=== PATIENT | female | born 1930 | race Caucasian/White ===

== ENCOUNTER 2017-02-15 07:53 | Inpatient (IN) | payer MEDICARE, MEDICAID ==
[~2017-02-15] VITALS: Ht 158.8 cm; Wt 63.4 kg
[~2017-02-15 07:53] MED LIST: ALBUPOW26; ESOM40CA39 PO; FLUT250M2 IN; GABA-497 PO; PRE5T PO; TOLT4CAP12 PO; TRAZ50TA2 PO
[2017-02-15 09:31] LABS: BUN/Creatinine Ratio 44.3; Bilirubin, Total 0.4 mg/dL (0.2-1.0); Calcium 8.2 mg/dL (8.5-10.1); Potassium 4.3 mmol/L (3.5-5.1); Total Protein 6.8 g/dL (6.4-8.2)
[2017-02-15 09:43] LABS: Basophils # (auto) 0 uL; CONDITION Y; Eosinophils # (auto) 0 uL; Hemoglobin 10.1 g/dL (12.2-16.2); Lymphocytes # (auto) 0.8 uL; Lymphocytes % (auto) 7.3 % (10.0-50.0); Mean Corpuscular Hemoglobin 28.4 pg (28.0-32.0); Mean Corpuscular Hgb Conc. 32.7 g/dL (32.0-36.0); Mean Corpuscular Volume 87.1 fL (80.0-100.0); Mean Platelet Volume 8.3 fL (7.4-10.4); Monocytes # (auto) 0.4 uL; Monocytes % (auto) 3.7 % (0.0-12.0); Neutrophils # (auto) 10.2 uL; Platelet Count (auto) 266 10^3/uL (140-450); Red Cell Distribution Width 14.3 % (11.6-16.0); White Blood Cell 11.5 10^3/uL (4.4-10.8)
[2017-02-15 09:59] LABS: INR 0.99 (0.9-1.15); Partial Thromboplastin Time 26.8 sec (22.64-33.71); Prothrombin Time 10.8 sec (9.37-12.3)
[2017-02-15] MEDS ORDERED: VANCOMYCIN 1GM/250ML D5W 250 ML IV ONE ×2 (11:00→11:15)
[2017-02-15] MEDS ORDERED: IPRATROPIUM BROM 0.5 MG/2.5ML INH SOL NEB ONE (11:00)
[2017-02-15] MEDS ORDERED: ALBUTEROL SULF 2.5 MG/0.5ML(0.5%) NEB SOLN NEB ONE (11:00)
[2017-02-15] MEDS: DOXYCYCLINE HYC 100MG/250ML 250 ML IV SCH (14:15)
[2017-02-15] MEDS ORDERED: MORPHINE SULF INJ 2 MG/ML SYRINGE 1ML IV PRN (14:30)
[2017-02-15] MEDS ORDERED: TEMAZEPAM 15 MG CAP PO PRN (14:30)
[2017-02-15] MEDS ORDERED: DOCUSATE SOD 100 MG CAP PO PRN (14:30)
[2017-02-15] MEDS ORDERED: HYDROcodone-ACET 5/325MG TAB PO PRN (14:30)
[2017-02-15] MEDS ORDERED: ACETAMINOPHEN 325 MG TAB PO PRN (14:30)
[2017-02-15] MEDS ORDERED: ONDANSETRON HCL 4 MG/2 ML VIAL IV PRN (14:30)
[2017-02-15] MEDS: FAMOTIDINE 20 MG TAB PO SCH ×2 (14:52→21:30)
[2017-02-15 15:41] VITALS: BP 105/63
[2017-02-15] MEDS ORDERED: FLUT100I IN (17:32)
[2017-02-15] MEDS ORDERED: IPRAAER6 IN (17:32)
[2017-02-15] MEDS ORDERED: ALBU18 IN (17:32)
[2017-02-15] MEDS ORDERED: CALC-9 OR (17:32)
[2017-02-15] MEDS ORDERED: UMEC1INH IN (17:32)
[2017-02-15] MEDS ORDERED: MULTLIQ36 OR (17:32)
[2017-02-15] MEDS ORDERED: METH10TA6 PO (17:32)
[2017-02-15 18:00] VITALS: BP 116/60
[2017-02-15] MEDS: BOOST PLUS 8 ounce PO SCH (18:12)
[2017-02-15] MEDS: IPRATROPIUM BROM 0.5 MG/2.5ML INH SOL NEB SCH (18:27)
[2017-02-15] MEDS: ALBUTEROL SULF 2.5 MG/0.5ML(0.5%) NEB SOLN NEB SCH (18:27)
[2017-02-15] MEDS: BUDESONIDE (INHALATION) 0.5 MG/2 ML NEB NEB SCH (18:28)
[2017-02-15 20:00] VITALS: BP 116/60
[2017-02-15] MEDS: TOLTERODINE TARTRATE 1 MG TAB PO SCH (21:31)
[2017-02-15] MEDS: SODIUM CHLOR 0.9% PF (SALINE LOCK) 10ML VIAL IV SCH (21:31)
[2017-02-16] MEDS: IPRATROPIUM BROM 0.5 MG/2.5ML INH SOL NEB SCH ×4 (00:49→18:22)
[2017-02-16] MEDS: ALBUTEROL SULF 2.5 MG/0.5ML(0.5%) NEB SOLN NEB SCH ×4 (00:49→18:22)
[2017-02-16] MEDS: DOXYCYCLINE HYC 100MG/250ML 250 ML IV SCH ×2 (01:56→14:15)
[2017-02-16 05:36] VITALS: BP 113/46
[2017-02-16] MEDS: SODIUM CHLOR 0.9% PF (SALINE LOCK) 10ML VIAL IV SCH ×3 (06:02→21:56)
[2017-02-16] MEDS: BUDESONIDE (INHALATION) 0.5 MG/2 ML NEB NEB SCH ×2 (06:18→18:22)
[2017-02-16 06:31] LABS: Basophils # (auto) 0 uL; Basophils % (auto) 0.3 % (0.0-2.0); CONDITION Y; Eosinophils # (auto) 0 uL; Eosinophils % (auto) 0.5 % (0.0-7.0); Hemoglobin 8.6 g/dL (12.2-16.2); Lymphocytes # (auto) 1.6 uL; Lymphocytes % (auto) 16.1 % (10.0-50.0); Mean Corpuscular Hemoglobin 28.6 pg (28.0-32.0); Mean Corpuscular Hgb Conc. 32.9 g/dL (32.0-36.0); Mean Corpuscular Volume 86.9 fL (80.0-100.0); Mean Platelet Volume 8.1 fL (7.4-10.4); Monocytes # (auto) 0.9 uL; Monocytes % (auto) 8.7 % (0.0-12.0); Neutrophils # (auto) 7.5 uL; Neutrophils % (auto) 74.4 % (37.0-80.0); Platelet Count (auto) 246 10^3/uL (140-450); Red Cell Distribution Width 14.3 % (11.6-16.0); White Blood Cell 10.1 10^3/uL (4.4-10.8)
[2017-02-16 06:50] LABS: Albumin 2.8 g/dL (3.4-5.0); BUN/Creatinine Ratio 33.9; Calcium 7.9 mg/dL (8.5-10.1); Potassium 3.6 mmol/L (3.5-5.1)
[2017-02-16 06:52] LABS: Bilirubin, Total 0.5 mg/dL (0.2-1.0); Total Protein 6.2 g/dL (6.4-8.2)
[2017-02-16 08:00] VITALS: BP 120/58
[2017-02-16 09:00] VITALS: BP 120/58
[2017-02-16] MEDS ORDERED: INCRUSE 62.5 MCG IN SCH (10:00)
[2017-02-16] MEDS: TOLTERODINE TARTRATE 1 MG TAB PO SCH ×2 (10:20→21:56)
[2017-02-16] MEDS: MULTIPLE VITAMIN TAB PO SCH (10:20)
[2017-02-16] MEDS: FAMOTIDINE 20 MG TAB PO SCH ×2 (10:20→21:56)
[2017-02-16] MEDS: CALCIUM W/VIT D (600MG/400IU) TAB PO SCH (10:20)
[2017-02-16] MEDS: BOOST PLUS 8 ounce PO SCH ×3 (10:21→18:00)
[2017-02-16] MEDS: METHIMAZOLE 5 MG TAB PO SCH (10:21)
[2017-02-16 13:00] VITALS: BP 124/65
[2017-02-16 17:00] VITALS: BP 137/66
[2017-02-16] MEDS ORDERED: predniSONE 20 MG TAB PO ONE (17:00)
[2017-02-16 22:33] VITALS: BP 100/59
[2017-02-17] MEDS: ALBUTEROL SULF 2.5 MG/0.5ML(0.5%) NEB SOLN NEB SCH ×4 (00:33→18:00)
[2017-02-17] MEDS: IPRATROPIUM BROM 0.5 MG/2.5ML INH SOL NEB SCH ×4 (00:33→18:00)
[2017-02-17] MEDS: DOXYCYCLINE HYC 100MG/250ML 250 ML IV SCH ×2 (03:06→13:43)
[2017-02-17] MEDS: SODIUM CHLOR 0.9% PF (SALINE LOCK) 10ML VIAL IV SCH ×3 (04:16→21:45)
[2017-02-17 04:56] VITALS: BP 108/61
[2017-02-17] MEDS: BUDESONIDE (INHALATION) 0.5 MG/2 ML NEB NEB SCH ×2 (06:29→07:54)
[2017-02-17] MEDS: BOOST PLUS 8 ounce PO SCH ×3 (08:00→18:00)
[2017-02-17 09:00] VITALS: BP 101/52
[2017-02-17] MEDS: CALCIUM W/VIT D (600MG/400IU) TAB PO SCH (10:32)
[2017-02-17] MEDS: METHIMAZOLE 5 MG TAB PO SCH (10:32)
[2017-02-17] MEDS: TOLTERODINE TARTRATE 1 MG TAB PO SCH ×2 (10:32→21:46)
[2017-02-17] MEDS: FAMOTIDINE 20 MG TAB PO SCH ×2 (10:32→21:45)
[2017-02-17] MEDS: predniSONE 20 MG TAB PO SCH (10:32)
[2017-02-17] MEDS: MULTIPLE VITAMIN TAB PO SCH (10:32)
[2017-02-17 12:41] LABS: Hematocrit 26.8 % (36.0-46.0); Hemoglobin 8.8 g/dL (12.2-16.2)
[2017-02-17 13:00] VITALS: BP 136/73
[2017-02-17] MEDS ORDERED: MORPHINE SULFATE 4 MG/ML SYRG IV PRN (14:03)
[2017-02-17 17:00] VITALS: BP 134/70
[2017-02-17 21:30] VITALS: BP 130/60
[2017-02-18] MEDS: DOXYCYCLINE HYC 100MG/250ML 250 ML IV SCH (02:15)
[2017-02-18 05:00] VITALS: BP 137/68
[2017-02-18] MEDS: SODIUM CHLOR 0.9% PF (SALINE LOCK) 10ML VIAL IV SCH (05:58)
[2017-02-18] MEDS: IPRATROPIUM BROM 0.5 MG/2.5ML INH SOL NEB SCH ×2 (06:30→14:01)
[2017-02-18] MEDS: ALBUTEROL SULF 2.5 MG/0.5ML(0.5%) NEB SOLN NEB SCH ×2 (06:30→14:00)
[2017-02-18] MEDS: BOOST PLUS 8 ounce PO SCH (08:00)
[2017-02-18 09:00] VITALS: BP 113/59
[2017-02-18] MEDS: FAMOTIDINE 20 MG TAB PO SCH (10:21)
[2017-02-18] MEDS: MULTIPLE VITAMIN TAB PO SCH (10:21)
[2017-02-18] MEDS: CALCIUM W/VIT D (600MG/400IU) TAB PO SCH (10:21)
[2017-02-18] MEDS: METHIMAZOLE 5 MG TAB PO SCH (10:21)
[2017-02-18] MEDS: TOLTERODINE TARTRATE 1 MG TAB PO SCH (10:21)
[2017-02-18] MEDS: predniSONE 20 MG TAB PO SCH (10:21)
[2017-02-18 12:56] VITALS: BP 139/73
[2017-02-18 13:00] VITALS: BP 139/73
== END 2017-02-18 14:30 | disposition home or self-care (01) | DRG 191 ==
LOC: EDBD 07:53 → ER 07:58 → OVERFLOW 07:59 → TELE-E-ADS 15:58 → CENTRAL 18:02
PROVIDERS: ADMIT Internal Medicine; ATTEND Internal Medicine Pulmonary Disease
DX: J44.0 Chronic obstructive pulmonary disease with (acute) lower respiratory infection (principal); J45.901 Unspecified asthma with (acute) exacerbation; E44.0 Moderate protein-calorie malnutrition; J96.11 Chronic respiratory failure with hypoxia; K92.1 Melena; J44.1 Chronic obstructive pulmonary disease with (acute) exacerbation; J20.9 Acute bronchitis, unspecified; D63.8 Anemia in other chronic diseases classified elsewhere; K21.9 Gastro-esophageal reflux disease without esophagitis; E78.5 Hyperlipidemia, unspecified; I12.9 Hypertensive chronic kidney disease with stage 1 through stage 4 chronic kidney disease, or unspecified chronic kidney disease; N18.3 Chronic kidney disease, stage 3 (moderate); E83.51 Hypocalcemia; I35.0 Nonrheumatic aortic (valve) stenosis; I70.0 Atherosclerosis of aorta; Z87.891 Personal history of nicotine dependence; Z99.81 Dependence on supplemental oxygen; Z88.0 Allergy status to penicillin; Z88.1 Allergy status to other antibiotic agents; Z68.25 Body mass index [BMI] 25.0-25.9, adult
CPT/HCPCS: 36415; 71010; 80053; 82962; 83605; 84484; 85014; 85018; 85025; 85610; 85730; 87040; 93005; 94640; 94761; 96365; 97116; 97530; J3490

== ENCOUNTER 2017-02-23 16:55 | Inpatient (IN) | payer MEDICARE, MEDICAID ==
[~2017-02-23] VITALS: Ht 160 cm; Wt 80.4 kg
[~2017-02-23 16:55] MED LIST changes: +ALBU18 IN; -ALBUPOW26; +CALC-9 OR; -ESOM40CA39 PO; +FLUT100I IN; -GABA-497 PO; +IPRAAER6 IN; +METH10TA6 PO; +MULTLIQ36 OR; +UMEC1INH IN
[2017-02-23 17:51] LABS: Basophils # (auto) 0 uL; CONDITION Y; Eosinophils # (auto) 0 uL; Hematocrit 30.1 % (36.0-46.0); Hemoglobin 9.8 g/dL (12.2-16.2); Lymphocytes # (auto) 1.1 uL; Lymphocytes % (auto) 5.9 % (10.0-50.0); Mean Corpuscular Hemoglobin 28.6 pg (28.0-32.0); Mean Corpuscular Hgb Conc. 32.7 g/dL (32.0-36.0); Mean Corpuscular Volume 87.7 fL (80.0-100.0); Mean Platelet Volume 7.4 fL (7.4-10.4); Monocytes # (auto) 1.2 uL; Monocytes % (auto) 6.6 % (0.0-12.0); Neutrophils # (auto) 16.6 uL; Neutrophils % (auto) 87.5 % (37.0-80.0); Platelet Count (auto) 469 10^3/uL (140-450); Red Cell Distribution Width 15.8 % (11.6-16.0)
[2017-02-23 18:07] LABS: Albumin 2.9 g/dL (3.4-5.0); BUN/Creatinine Ratio 34.1; Calcium 9.4 mg/dL (8.5-10.1); Magnesium 2.3 mg/dL (1.6-2.6); Potassium 4.1 mmol/L (3.5-5.1)
[2017-02-23 18:23] LABS: Bilirubin, Total 0.5 mg/dL (0.2-1.0); Total Protein 6.5 g/dL (6.4-8.2)
[2017-02-23] MEDS ORDERED: NITROGLYCERIN 0.2MG/HR TOPICAL PATCH TD ONE (18:45)
[2017-02-23] MEDS ORDERED: ASPirin 81 mg TAB PO ONE (18:45)
[2017-02-23 19:12] LABS: INR 1.06 (0.9-1.15); Partial Thromboplastin Time 24.3 sec (22.64-33.71); Prothrombin Time 11.6 sec (9.37-12.3)
[2017-02-23 19:22] LABS: B-Type Natriuretic Peptide 287.53 pg/mL (0-100)
[2017-02-23 19:27] LABS: Temperature: 22.3 C (20.0-25.0)
[2017-02-23] MEDS ORDERED: ATORVASTATIN 20 MG TAB PO ONE (21:15)
[2017-02-23] MEDS ORDERED: METOPROLOL TARTRATE 50 MG TAB PO ONE (21:15)
[2017-02-23] MEDS ORDERED: ENOXAPARIN SOD 80 MG/0.8ML SYRINGE SC ONE (21:15)
[2017-02-23] MEDS ORDERED: ONDANSETRON HCL 4 MG/2 ML VIAL IV ONE (21:15)
[2017-02-23] MEDS ORDERED: MORPHINE SULFATE 4 MG/ML SYRG IV ONE (21:15)
[2017-02-23] MEDS ORDERED: FUROSEMIDE 20 MG/2 ML VIAL IV ONE (22:15)
[2017-02-24] MEDS ORDERED: NITROGLYCERIN 0.4 MG SL TAB SL PRN (01:00)
[2017-02-24] MEDS ORDERED: ACETAMINOPHEN 325 MG TAB PO PRN (01:00)
[2017-02-24] MEDS ORDERED: HYDROcodone-ACET 5/325MG TAB PO PRN (01:00)
[2017-02-24] MEDS: AZITHROMYCIN 500MG/D5W 250ML 250 ML IV SCH (01:33)
[2017-02-24] MEDS ORDERED: MEROPENEM 1GM IVPB 100 ML IV ONE (02:00)
[2017-02-24] MEDS: MORPHINE SULFATE 4 MG/ML SYRG IV PRN ×2 (02:29→15:34)
[2017-02-24] MEDS: ONDANSETRON HCL 4 MG/2 ML VIAL IV PRN ×2 (02:31→15:34)
[2017-02-24] MEDS ORDERED: ALBUMIN 5% 250 ML IV ONE (03:00)
[2017-02-24] MEDS ORDERED: CLOPIDOGREL 300 MG TAB PO ONE (03:00)
[2017-02-24] MEDS ORDERED: ATROPINE SULF 0.5 MG/5ML SYR ONE (03:09)
[2017-02-24] MEDS ORDERED: DOPamine 1600MCG/ML 250 ML IV ONE (03:11)
[2017-02-24] MEDS: DOPamine 1600MCG/ML 250 ML IV SCH ×2 (03:32→22:43)
[2017-02-24] MEDS ORDERED: MEROPENEM 500 MG IV ONE (04:08)
[2017-02-24 04:36] LABS: Urine Bilirubin Negative (Negative); Urine Color Yellow (Yellow); Urine Glucose Normal (Normal); Urine Hyaline Cast FEW /lpf (0 - 2); Urine Ketone Negative (Negative); Urine Nitrite Negative (Negative); Urine RBC <1 /hpf (0 - 4); Urine Squamous Epithelial Cell FEW /hpf (<5); Urine Urobilinogen Normal (Negative)
[2017-02-24 04:40] LABS: Urine Blood 1+ /uL (Negative)
[2017-02-24] MEDS ORDERED: ENOXAPARIN SOD 30 MG/0.3 ML SYRINGE IV ONE (04:45)
[2017-02-24] MEDS: MEROPENEM 500MG IVPB 100 ML IV SCH (05:46)
[2017-02-24] MEDS ORDERED: PATIENTS OWN MEDICATION (meropenem 1 GM) IV SCH (06:00)
[2017-02-24] MEDS ORDERED: ENOXAPARIN SOD 100 MG/1 ML SYRINGE SC SCH (10:00)
[2017-02-24] MEDS ORDERED: DOPAMINE HCL IV ONE (10:07)
[2017-02-24] MEDS: NOREPINEPHRINE BITARTRATE 250 ML IV SCH (11:51)
[2017-02-24] MEDS: PANTOPRAZOLE SODIUM 40 MG/10 ML VIAL IV SCH (11:57)
[2017-02-24] MEDS: PROCHLORPERAZINE EDISYLATE 5 MG/ML 2ML VIAL IV PRN (19:26)
[2017-02-25] VITALS (25 sets, daily range): BP systolic 58–149; BP diastolic 20–104
[2017-02-25] MEDS: MEROPENEM 500MG IVPB 100 ML IV SCH ×2 (02:00→18:46)
[2017-02-25] MEDS: AZITHROMYCIN 500MG/D5W 250ML 250 ML IV SCH (02:14)
[2017-02-25] MEDS: ONDANSETRON HCL 4 MG/2 ML VIAL IV PRN ×2 (02:25→23:38)
[2017-02-25 05:55] LABS: CONDITION Y; DEFINITIVE SEE PRINTOUT; Hematocrit 30.2 % (36.0-46.0); Hemoglobin 10.2 g/dL (12.2-16.2); Mean Corpuscular Hemoglobin 29.6 pg (28.0-32.0); Mean Corpuscular Hgb Conc. 33.8 g/dL (32.0-36.0); Mean Corpuscular Volume 87.6 fL (80.0-100.0); Mean Platelet Volume 7.8 fL (7.4-10.4); Platelet Count (auto) 333 10^3/uL (140-450); Red Cell Distribution Width 15.4 % (11.6-16.0); SUSPECT SEE PRINTOUT
[2017-02-25 06:01] LABS: White Blood Cell 33.3 10^3/uL (4.4-10.8)
[2017-02-25 06:02] LABS: Metamyelocytes % 0; Myelocytes % 0; Promyelocytes % 0; Reactive Lymphocytes 0
[2017-02-25 06:15] LABS: Albumin 2.7 g/dL (3.4-5.0); BUN/Creatinine Ratio 31.9; Calcium 7.6 mg/dL (8.5-10.1); Potassium 4.2 mmol/L (3.5-5.1)
[2017-02-25 06:18] LABS: Bilirubin, Total 0.9 mg/dL (0.2-1.0)
[2017-02-25 06:52] LABS: Hypersegmented Neutrophils Present
[2017-02-25 06:53] LABS: Anisocytosis Slight; Ovalocytes S; Platelet Estimate Adequate
[2017-02-25] MEDS: NOREPINEPHRINE BITARTRATE 250 ML IV SCH (07:15)
[2017-02-25] MEDS ORDERED: fentaNYL CITRATE 100 MCG/2 ML VL ONE (09:22)
[2017-02-25] MEDS ORDERED: MIDAZOLAM HCL 1MG/1ML-2 ML VIAL ONE (09:22)
[2017-02-25] MEDS ORDERED: LIDOCAINE 2%HCL (LOCAL ANESTH.) INJ 20ML MDV ONE ×2 (09:23→10:09)
[2017-02-25] MEDS ORDERED: IOHEXOL 350 MG/ML 100ML IJ ONE (09:23)
[2017-02-25] MEDS: PANTOPRAZOLE SODIUM 40 MG/10 ML VIAL IV SCH (10:00)
[2017-02-25] MEDS: LINEZOLID 600MG/300ML 300 ML IV SCH ×2 (10:00→21:54)
[2017-02-25] MEDS ORDERED: ANGIOMAX 250 MG VIAL IV ONE (10:17)
[2017-02-25] MEDS ORDERED: SODIUM CHL 0.9% 50 ML ONE (10:17)
[2017-02-25] MEDS ORDERED: EPTIFIBATIDE INJ (2MG/ML) 10ML VIAL IV ONE (10:20)
[2017-02-25] MEDS ORDERED: CLOPIDOGREL 300 MG TAB ONE (10:58)
[2017-02-25] MEDS ORDERED: ONDANSETRON HCL 4 MG/2 ML VIAL IV ONE (11:00)
[2017-02-25] MEDS ORDERED: CLOPIDOGREL 300 MG TAB PO ONE (11:15)
[2017-02-25] MEDS ORDERED: DOPamine 1600MCG/ML 250 ML IV ONE (12:00)
[2017-02-25] MEDS: cefTRIAXone 1GM/50ML D5W 50 ML IV SCH (12:00)
[2017-02-25] MEDS ORDERED: MORPHINE SULFATE 4 MG/ML SYRG IV PRN (12:15)
[2017-02-25] MEDS ORDERED: NITROGLYCERIN 0.4 MG SL TAB SL PRN ×2 (12:15)
[2017-02-25] MEDS ORDERED: FUROSEMIDE 20 MG/2 ML VIAL ONE (13:43)
[2017-02-25] MEDS ORDERED: FUROSEMIDE 40 MG/4 ML VIAL IV ONE (14:00)
[2017-02-25 14:34] LABS: Allen Test Yes; Base Excess 0.2 mmol/L (-2.0-2.0); Blood COHb 0.3 % (0.5-1.5); Blood MetHb 0.3 % (0.0-1.5); HCO3 25.2 mmol/L (22-26.0); MODE NASAL CANNULA; O2Hb 97.4 % (94.0-97.0); PCO2 42.2 mmHg (35.0-45.0); PCO2(T) 42.2 mmHg (35.0-45.0); PO2 140.2 mmHg (80.0-100.0); PO2(T) 140.2 mmHg (80.0-100.0); Room 1017-ERT; Sample Type Arterial; pH 7.394 (7.350-7.450)
[2017-02-25] MEDS ORDERED: ALBUMIN 25% 100 ML IV ONE (16:30)
[2017-02-25] MEDS: IPRATROPIUM BROM 0.5 MG/2.5ML INH SOL NEB SCH (18:35)
[2017-02-25] MEDS: DOPamine 1600MCG/ML 250 ML IV SCH ×2 (18:46→23:37)
[2017-02-25] MEDS: methylPREDNISolone SOD SUCC 125 MG/2 ML VL IV SCH (23:37)
[2017-02-26] VITALS (63 sets, daily range): BP systolic 98–150; BP diastolic 42–99
[2017-02-26] MEDS: IPRATROPIUM BROM 0.5 MG/2.5ML INH SOL NEB SCH ×4 (00:08→19:45)
[2017-02-26] MEDS: PROCHLORPERAZINE EDISYLATE 5 MG/ML 2ML VIAL IV PRN (00:39)
[2017-02-26] MEDS: AZITHROMYCIN 500MG/D5W 250ML 250 ML IV SCH (02:05)
[2017-02-26] MEDS: MEROPENEM 500MG IVPB 100 ML IV SCH ×3 (03:52→14:19)
[2017-02-26 04:10] LABS: CONDITION Y; DEFINITIVE SEE PRINTOUT; Hematocrit 22.9 % (36.0-46.0); Hemoglobin 7.6 g/dL (12.2-16.2); Mean Corpuscular Hemoglobin 29.5 pg (28.0-32.0); Mean Corpuscular Volume 89.2 fL (80.0-100.0); Platelet Count (auto) 253 10^3/uL (140-450); Red Cell Distribution Width 15.8 % (11.6-16.0); SUSPECT SEE PRINTOUT; White Blood Cell 21.8 10^3/uL (4.4-10.8)
[2017-02-26 04:20] LABS: Albumin 2.7 g/dL (3.4-5.0); BUN/Creatinine Ratio 28.1; Calcium 7.7 mg/dL (8.5-10.1); Potassium 3.4 mmol/L (3.5-5.1)
[2017-02-26 04:23] LABS: Bilirubin, Total 0.6 mg/dL (0.2-1.0); Total Protein 5.5 g/dL (6.4-8.2)
[2017-02-26 04:27] LABS: Metamyelocytes % 0; Myelocytes % 0; Promyelocytes % 0; Reactive Lymphocytes 0
[2017-02-26 04:48] LABS: Anisocytosis Slight; Hypersegmented Neutrophils Present; Platelet Estimate Adequate
[2017-02-26] MEDS: methylPREDNISolone SOD SUCC 125 MG/2 ML VL IV SCH ×4 (06:06→23:29)
[2017-02-26] MEDS: NOREPINEPHRINE BITARTRATE 250 ML IV SCH (07:15)
[2017-02-26] MEDS: cefTRIAXone 1GM/50ML D5W 50 ML IV SCH (09:00)
[2017-02-26] MEDS: MULTIPLE VITAMIN TAB PO SCH (09:42)
[2017-02-26] MEDS: PANTOPRAZOLE SODIUM 40 MG/10 ML VIAL IV SCH (09:42)
[2017-02-26] MEDS: CALCIUM W/VIT D (600MG/400IU) TAB PO SCH (09:43)
[2017-02-26] MEDS: CLOPIDOGREL BISULFATE 75 MG TAB PO SCH (09:43)
[2017-02-26] MEDS ORDERED: TOLTERODINE TARTRATE 1 MG TAB PO SCH (10:00)
[2017-02-26] MEDS: LINEZOLID 600MG/300ML 300 ML IV SCH ×2 (10:43→23:28)
[2017-02-26] MEDS: ONDANSETRON HCL 4 MG/2 ML VIAL IV PRN (21:46)
[2017-02-26] MEDS: TOLTERODINE TARTRATE 1 MG TAB PO SCH (23:25)
[2017-02-27 00:30] VITALS: BP 127/75
[2017-02-27] MEDS: IPRATROPIUM BROM 0.5 MG/2.5ML INH SOL NEB SCH ×4 (00:30→19:40)
[2017-02-27] MEDS: ONDANSETRON HCL 4 MG/2 ML VIAL IV PRN ×4 (02:02→14:18)
[2017-02-27] MEDS: AZITHROMYCIN 500MG/D5W 250ML 250 ML IV SCH (02:11)
[2017-02-27] MEDS: MEROPENEM 500MG IVPB 100 ML IV SCH ×2 (02:37→14:13)
[2017-02-27] MEDS ORDERED: DOPamine 1600MCG/ML 250 ML IV SCH (03:15)
[2017-02-27] MEDS: methylPREDNISolone SOD SUCC 125 MG/2 ML VL IV SCH ×3 (05:58→18:16)
[2017-02-27 06:22] LABS: Basophils # (auto) 0 uL; CONDITION Y; Eosinophils # (auto) 0 uL; Hematocrit 30.5 % (36.0-46.0); Lymphocytes # (auto) 0.4 uL; Lymphocytes % (auto) 2.9 % (10.0-50.0); Mean Corpuscular Hemoglobin 29.4 pg (28.0-32.0); Mean Corpuscular Hgb Conc. 32.7 g/dL (32.0-36.0); Mean Corpuscular Volume 89.7 fL (80.0-100.0); Mean Platelet Volume 8.7 fL (7.4-10.4); Monocytes # (auto) 0.4 uL; Neutrophils # (auto) 12.7 uL; Neutrophils % (auto) 94.1 % (37.0-80.0); Platelet Count (auto) 227 10^3/uL (140-450); Red Cell Distribution Width 14.8 % (11.6-16.0); White Blood Cell 13.5 10^3/uL (4.4-10.8)
[2017-02-27 06:44] LABS: BUN/Creatinine Ratio 34.3; Calcium 8.4 mg/dL (8.5-10.1); Potassium 3.5 mmol/L (3.5-5.1)
[2017-02-27] MEDS: cefTRIAXone 1GM/50ML D5W 50 ML IV SCH (08:43)
[2017-02-27 09:00] VITALS: BP 134/60
[2017-02-27] MEDS: MULTIPLE VITAMIN TAB PO SCH (09:59)
[2017-02-27] MEDS: CLOPIDOGREL BISULFATE 75 MG TAB PO SCH (09:59)
[2017-02-27] MEDS: CALCIUM W/VIT D (600MG/400IU) TAB PO SCH (09:59)
[2017-02-27] MEDS: TOLTERODINE TARTRATE 1 MG TAB PO SCH ×2 (09:59→21:58)
[2017-02-27] MEDS: PANTOPRAZOLE SODIUM 40 MG/10 ML VIAL IV SCH (09:59)
[2017-02-27] MEDS: LINEZOLID 600MG/300ML 300 ML IV SCH ×2 (10:01→21:58)
[2017-02-27 13:00] VITALS: BP 121/71
[2017-02-27] MEDS: LOPERAMIDE HCL 2 MG CAP PO PRN ×2 (13:15→19:53)
[2017-02-27] MEDS: ALBUTEROL SULF 2.5 MG/0.5ML(0.5%) NEB SOLN NEB PRN ×2 (14:06→19:40)
[2017-02-27 16:40] VITALS: BP 122/59
[2017-02-27 19:31] LABS: Hematocrit 27.7 % (36.0-46.0); Hemoglobin 9.2 g/dL (12.2-16.2)
[2017-02-27 22:00] VITALS: BP 110/74
[2017-02-27] MEDS ORDERED: CHOLESTYRAMINE 4 GM POWDER PO SCH (22:00)
[2017-02-28] VITALS (11 sets, daily range): BP systolic 107–150; BP diastolic 45–88
[2017-02-28] MEDS: methylPREDNISolone SOD SUCC 125 MG/2 ML VL IV SCH ×4 (00:13→18:18)
[2017-02-28] MEDS: IPRATROPIUM BROM 0.5 MG/2.5ML INH SOL NEB SCH ×4 (00:54→18:25)
[2017-02-28] MEDS: MEROPENEM 500MG IVPB 100 ML IV SCH ×2 (01:59→13:12)
[2017-02-28] MEDS: AZITHROMYCIN 500MG/D5W 250ML 250 ML IV SCH (02:00)
[2017-02-28] MEDS: LOPERAMIDE HCL 2 MG CAP PO PRN ×2 (03:11→09:37)
[2017-02-28] MEDS: MULTIPLE VITAMIN TAB PO SCH (09:37)
[2017-02-28] MEDS: LINEZOLID 600MG/300ML 300 ML IV SCH ×2 (09:37→22:17)
[2017-02-28] MEDS: PANTOPRAZOLE SODIUM 40 MG/10 ML VIAL IV SCH ×2 (09:38→22:17)
[2017-02-28] MEDS: CALCIUM W/VIT D (600MG/400IU) TAB PO SCH (09:38)
[2017-02-28] MEDS: TOLTERODINE TARTRATE 1 MG TAB PO SCH ×2 (09:38→22:18)
[2017-02-28 10:17] LABS: Basophils # (auto) 0 uL; CONDITION Y; DEFINITIVE SEE PRINTOUT; Eosinophils # (auto) 0 uL; Hematocrit 24.2 % (36.0-46.0); Lymphocytes # (auto) 0.3 uL; Lymphocytes % (auto) 2.6 % (10.0-50.0); Mean Corpuscular Hemoglobin 29.6 pg (28.0-32.0); Mean Corpuscular Hgb Conc. 32.9 g/dL (32.0-36.0); Mean Corpuscular Volume 89.9 fL (80.0-100.0); Mean Platelet Volume 8.4 fL (7.4-10.4); Monocytes # (auto) 0.3 uL; Monocytes % (auto) 2.4 % (0.0-12.0); Neutrophils # (auto) 12.2 uL; Platelet Count (auto) 241 10^3/uL (140-450); Red Cell Distribution Width 15.7 % (11.6-16.0); White Blood Cell 12.8 10^3/uL (4.4-10.8)
[2017-02-28 10:38] LABS: Albumin 2.4 g/dL (3.4-5.0); BUN/Creatinine Ratio 32.1; Bilirubin, Total 0.5 mg/dL (0.2-1.0); Calcium 8.2 mg/dL (8.5-10.1); Total Protein 4.7 g/dL (6.4-8.2)
[2017-03-01] VITALS (14 sets, daily range): BP systolic 98–143; BP diastolic 49–75
[2017-03-01] MEDS: IPRATROPIUM BROM 0.5 MG/2.5ML INH SOL NEB SCH ×4 (00:02→19:14)
[2017-03-01] MEDS: methylPREDNISolone SOD SUCC 125 MG/2 ML VL IV SCH ×5 (00:20→23:44)
[2017-03-01] MEDS: AZITHROMYCIN 500MG/D5W 250ML 250 ML IV SCH (02:00)
[2017-03-01] MEDS: MEROPENEM 500MG IVPB 100 ML IV SCH (02:00)
[2017-03-01 06:31] LABS: Basophils # (auto) 0 uL; CONDITION Y; Eosinophils # (auto) 0 uL; Hematocrit 27.8 % (36.0-46.0); Hemoglobin 9.6 g/dL (12.2-16.2); Lymphocytes # (auto) 0.4 uL; Lymphocytes % (auto) 3.4 % (10.0-50.0); Mean Corpuscular Hemoglobin 30.7 pg (28.0-32.0); Mean Corpuscular Hgb Conc. 34.4 g/dL (32.0-36.0); Mean Corpuscular Volume 89.4 fL (80.0-100.0); Mean Platelet Volume 8.6 fL (7.4-10.4); Monocytes # (auto) 0.5 uL; Neutrophils # (auto) 12.1 uL; Neutrophils % (auto) 92.6 % (37.0-80.0); Platelet Count (auto) 170 10^3/uL (140-450); White Blood Cell 13.1 10^3/uL (4.4-10.8)
[2017-03-01 06:34] LABS: Calcium 7.7 mg/dL (8.5-10.1); Potassium 4.4 mmol/L (3.5-5.1)
[2017-03-01 06:39] LABS: Albumin 2.1 g/dL (3.4-5.0); BUN/Creatinine Ratio 31.6; Bilirubin, Total 0.7 mg/dL (0.2-1.0); Total Protein 4.3 g/dL (6.4-8.2)
[2017-03-01] MEDS ORDERED: GASTROGRAFIN 30 ML SOL ONE (07:13)
[2017-03-01] MEDS: LINEZOLID 600MG/300ML 300 ML IV SCH (09:55)
[2017-03-01] MEDS: PANTOPRAZOLE SODIUM 40 MG/10 ML VIAL IV SCH ×3 (10:00→21:40)
[2017-03-01] MEDS: TOLTERODINE TARTRATE 1 MG TAB PO SCH ×2 (11:28→21:40)
[2017-03-01] MEDS: CALCIUM W/VIT D (600MG/400IU) TAB PO SCH (11:28)
[2017-03-01] MEDS: MULTIPLE VITAMIN TAB PO SCH (11:28)
[2017-03-01] MEDS: ALBUTEROL SULF 2.5 MG/0.5ML(0.5%) NEB SOLN NEB PRN (19:14)
[2017-03-02] VITALS (12 sets, daily range): BP systolic 104–154; BP diastolic 48–95
[2017-03-02] MEDS: AZITHROMYCIN 500MG/D5W 250ML 250 ML IV SCH (01:26)
[2017-03-02] MEDS: methylPREDNISolone SOD SUCC 125 MG/2 ML VL IV SCH (05:25)
[2017-03-02 06:27] LABS: Basophils # (auto) 0 uL; CONDITION Y; DEFINITIVE SEE PRINTOUT; Eosinophils # (auto) 0 uL; Hematocrit 23.1 % (36.0-46.0); Hemoglobin 7.8 g/dL (12.2-16.2); Lymphocytes # (auto) 0.6 uL; Lymphocytes % (auto) 4.1 % (10.0-50.0); Mean Corpuscular Hemoglobin 30.1 pg (28.0-32.0); Mean Corpuscular Hgb Conc. 33.8 g/dL (32.0-36.0); Mean Corpuscular Volume 89.2 fL (80.0-100.0); Mean Platelet Volume 8.5 fL (7.4-10.4); Monocytes # (auto) 0.6 uL; Monocytes % (auto) 4.1 % (0.0-12.0); Neutrophils # (auto) 14.3 uL; Neutrophils % (auto) 91.8 % (37.0-80.0); Platelet Count (auto) 161 10^3/uL (140-450); Red Cell Distribution Width 15.5 % (11.6-16.0); White Blood Cell 15.6 10^3/uL (4.4-10.8)
[2017-03-02 06:43] LABS: Calcium 7.7 mg/dL (8.5-10.1); Potassium 4.6 mmol/L (3.5-5.1)
[2017-03-02 06:52] LABS: BUN/Creatinine Ratio 41.3
[2017-03-02] MEDS: IPRATROPIUM BROM 0.5 MG/2.5ML INH SOL NEB SCH ×4 (07:02→18:00)
[2017-03-02] MEDS ORDERED: cefTRIAXone 1GM/50ML D5W 50 ML IV SCH (09:00)
[2017-03-02] MEDS: TOLTERODINE TARTRATE 1 MG TAB PO SCH ×2 (10:13→22:01)
[2017-03-02] MEDS: PANTOPRAZOLE SODIUM 40 MG/10 ML VIAL IV SCH ×2 (10:14→22:01)
[2017-03-02] MEDS: MULTIPLE VITAMIN TAB PO SCH (10:14)
[2017-03-02] MEDS: CALCIUM W/VIT D (600MG/400IU) TAB PO SCH (10:14)
[2017-03-02] MEDS: LOPERAMIDE HCL 2 MG CAP PO PRN ×2 (10:15→16:47)
[2017-03-02] MEDS: ASPirin 81 mg TAB PO SCH (12:42)
[2017-03-03] MEDS: IPRATROPIUM BROM 0.5 MG/2.5ML INH SOL NEB SCH ×4 (00:25→17:55)
[2017-03-03 02:24] VITALS: BP 106/72
[2017-03-03 05:00] VITALS: BP 101/65
[2017-03-03 09:00] VITALS: BP 109/52
[2017-03-03] MEDS: TOLTERODINE TARTRATE 1 MG TAB PO SCH ×2 (11:00→21:52)
[2017-03-03] MEDS: CALCIUM W/VIT D (600MG/400IU) TAB PO SCH (11:00)
[2017-03-03] MEDS: PANTOPRAZOLE SODIUM 40 MG/10 ML VIAL IV SCH ×2 (11:00→21:52)
[2017-03-03] MEDS: MULTIPLE VITAMIN TAB PO SCH (11:00)
[2017-03-03] MEDS: ASPirin 81 mg TAB PO SCH (11:01)
[2017-03-03] MEDS: predniSONE 20 MG TAB PO SCH (11:01)
[2017-03-03 13:00] VITALS: BP 103/79
[2017-03-03 13:23] LABS: CONDITION Y; Hematocrit 28.3 % (36.0-46.0); Hemoglobin 9.5 g/dL (12.2-16.2); Mean Corpuscular Hemoglobin 30.6 pg (28.0-32.0); Mean Corpuscular Hgb Conc. 33.8 g/dL (32.0-36.0); Mean Corpuscular Volume 90.6 fL (80.0-100.0); Mean Platelet Volume 7.9 fL (7.4-10.4); Platelet Count (auto) 164 10^3/uL (140-450); Red Cell Distribution Width 14.7 % (11.6-16.0); SUSPECT SEE PRINTOUT; White Blood Cell 27.5 10^3/uL (4.4-10.8)
[2017-03-03 13:33] LABS: INR 1.02 (0.9-1.15); Prothrombin Time 11.1 sec (9.37-12.3)
[2017-03-03 13:45] LABS: Metamyelocytes % 0; Myelocytes % 0; Promyelocytes % 0; Reactive Lymphocytes 0
[2017-03-03 15:04] LABS: Ovalocytes FEW; Platelet Estimate Adequate; Stomatocytes Few
[2017-03-03 17:00] VITALS: BP 120/84
[2017-03-03] MEDS: ALBUTEROL SULF 2.5 MG/0.5ML(0.5%) NEB SOLN NEB PRN (17:55)
[2017-03-03 22:00] VITALS: BP 143/55
[2017-03-04] VITALS (14 sets, daily range): BP systolic 98–149; BP diastolic 49–78
[2017-03-04] MEDS: IPRATROPIUM BROM 0.5 MG/2.5ML INH SOL NEB SCH ×4 (05:56→20:30)
[2017-03-04 08:06] LABS: CONDITION Y; DEFINITIVE SEE PRINTOUT; Hematocrit 19.9 % (36.0-46.0); Mean Corpuscular Hemoglobin 31.1 pg (28.0-32.0); Mean Corpuscular Hgb Conc. 34.1 g/dL (32.0-36.0); Mean Corpuscular Volume 91.2 fL (80.0-100.0); Mean Platelet Volume 8.4 fL (7.4-10.4); Platelet Count (auto) 131 10^3/uL (140-450); Red Cell Distribution Width 14.6 % (11.6-16.0); SUSPECT SEE PRINTOUT; White Blood Cell 26.6 10^3/uL (4.4-10.8)
[2017-03-04 08:18] LABS: INR 1.16 (0.9-1.15)
[2017-03-04 08:24] LABS: Hemoglobin 6.8 g/dL (12.2-16.2)
[2017-03-04 08:26] LABS: Metamyelocytes % 0; Myelocytes % 0; Promyelocytes % 0; Reactive Lymphocytes 0
[2017-03-04 08:28] LABS: Prothrombin Time 12.7 sec (9.37-12.3)
[2017-03-04 08:38] LABS: Platelet Estimate Adequate
[2017-03-04 08:39] LABS: Anisocytosis Slight
[2017-03-04 08:40] LABS: Albumin 1.9 g/dL (3.4-5.0); BUN/Creatinine Ratio 44.5; Bilirubin, Total 0.7 mg/dL (0.2-1.0); Magnesium 2.6 mg/dL (1.6-2.6); Total Protein 3.9 g/dL (6.4-8.2)
[2017-03-04] MEDS: TOLTERODINE TARTRATE 1 MG TAB PO SCH ×2 (09:30→21:40)
[2017-03-04] MEDS: PANTOPRAZOLE SODIUM 40 MG/10 ML VIAL IV SCH ×2 (09:30→21:40)
[2017-03-04] MEDS: MULTIPLE VITAMIN TAB PO SCH (09:31)
[2017-03-04] MEDS: ASPirin 81 mg TAB PO SCH (09:31)
[2017-03-04] MEDS: CALCIUM W/VIT D (600MG/400IU) TAB PO SCH (09:31)
[2017-03-04] MEDS: predniSONE 20 MG TAB PO SCH (09:31)
[2017-03-04] MEDS ORDERED: MORPHINE SULFATE 4 MG/ML SYRG IV PRN (13:15)
[2017-03-04] MEDS: MEROPENEM 1GM IVPB 100 ML IV SCH ×2 (13:46→21:42)
[2017-03-04 17:31] LABS: Urine Bilirubin Negative (Negative); Urine Blood TRACE /uL (Negative); Urine Color Yellow (Yellow); Urine Glucose Normal (Normal); Urine Ketone Negative (Negative); Urine Mucus FEW (None Seen); Urine Nitrite Negative (Negative); Urine RBC 2 /hpf (0 - 4); Urine Squamous Epithelial Cell FEW /hpf (<5); Urine Urobilinogen Normal (Negative); Urine pH 5.5 (5.0-8.0)
[2017-03-04] MEDS ORDERED: FUROSEMIDE 20 MG/2 ML VIAL IV ONE (20:45)
[2017-03-04 21:32] LABS: Hematocrit 28.8 % (36.0-46.0); Hemoglobin 9.7 g/dL (12.2-16.2)
[2017-03-04] MEDS: PRO-STAT 64 30ML PO SCH (22:00)
[2017-03-05 05:30] VITALS: BP 116/45
[2017-03-05] MEDS: MEROPENEM 1GM IVPB 100 ML IV SCH ×3 (05:57→22:00)
[2017-03-05] MEDS: IPRATROPIUM BROM 0.5 MG/2.5ML INH SOL NEB SCH ×3 (07:15→19:05)
[2017-03-05] MEDS ORDERED: KETAMINE HCL 1 ML ONE (08:40)
[2017-03-05] MEDS ORDERED: BENZOCAINE (DENTAL) 20 % SPRAY 60ML MT ONE (08:48)
[2017-03-05 09:12] VITALS: BP 112/53
[2017-03-05] MEDS ORDERED: PROPOFOL 10 MG/ML 20 ML IV ONE (09:45)
[2017-03-05] MEDS: predniSONE 20 MG TAB PO SCH (10:43)
[2017-03-05] MEDS: ASPirin 81 mg TAB PO SCH (10:43)
[2017-03-05] MEDS: CALCIUM W/VIT D (600MG/400IU) TAB PO SCH (10:43)
[2017-03-05] MEDS: PANTOPRAZOLE SODIUM 40 MG/10 ML VIAL IV SCH ×2 (10:43→22:01)
[2017-03-05] MEDS: TOLTERODINE TARTRATE 1 MG TAB PO SCH ×2 (10:43→22:01)
[2017-03-05] MEDS: MULTIPLE VITAMIN TAB PO SCH (10:43)
[2017-03-05 10:44] LABS: CONDITION Y; Hematocrit 31.3 % (36.0-46.0); Hemoglobin 11.1 g/dL (12.2-16.2); Mean Corpuscular Hgb Conc. 35.3 g/dL (32.0-36.0); Mean Corpuscular Volume 90.7 fL (80.0-100.0); Mean Platelet Volume 8.1 fL (7.4-10.4); Platelet Count (auto) 89 10^3/uL (140-450); SUSPECT SEE PRINTOUT; White Blood Cell 27.7 10^3/uL (4.4-10.8)
[2017-03-05] MEDS: PRO-STAT 64 30ML PO SCH ×2 (10:44→22:00)
[2017-03-05 10:52] LABS: Metamyelocytes % 0; Myelocytes % 0; Promyelocytes % 0; Reactive Lymphocytes 0
[2017-03-05 11:21] LABS: BUN/Creatinine Ratio 43.6; Calcium 7.7 mg/dL (8.5-10.1); Magnesium 2.3 mg/dL (1.6-2.6); Potassium 4.1 mmol/L (3.5-5.1); Total Protein 4.5 g/dL (6.4-8.2)
[2017-03-05 11:40] LABS: Platelet Estimate Adequate; RBC Morphology Normal
[2017-03-05 13:46] VITALS: BP 107/70
[2017-03-05 14:40] LABS: Hematocrit 28.8 % (36.0-46.0); Hemoglobin 9.9 g/dL (12.2-16.2)
[2017-03-05 14:52] LABS: INR 0.98 (0.9-1.15); Prothrombin Time 10.7 sec (9.37-12.3)
[2017-03-05] MEDS: HYDROcodone-ACET 5/325MG TAB PO PRN (16:02)
[2017-03-05 16:49] VITALS: BP 99/47
[2017-03-05 18:38] LABS: Hemoglobin 9.2 g/dL (12.2-16.2)
[2017-03-05] MEDS: ONDANSETRON HCL 4 MG/2 ML VIAL IV PRN (18:39)
[2017-03-05 21:30] VITALS: BP 115/56
[2017-03-06] MEDS: IPRATROPIUM BROM 0.5 MG/2.5ML INH SOL NEB SCH ×5 (00:35→21:36)
[2017-03-06] MEDS: ALBUTEROL SULF 2.5 MG/0.5ML(0.5%) NEB SOLN NEB PRN ×2 (00:38→21:36)
[2017-03-06 01:01] LABS: Hematocrit 26.9 % (36.0-46.0); Hemoglobin 9.2 g/dL (12.2-16.2)
[2017-03-06 04:45] VITALS: BP 110/49
[2017-03-06] MEDS: MEROPENEM 1GM IVPB 100 ML IV SCH ×2 (05:36→16:13)
[2017-03-06 09:00] VITALS: BP 92/56
[2017-03-06] MEDS: PRO-STAT 64 30ML PO SCH ×2 (10:00→21:58)
[2017-03-06] MEDS: CALCIUM W/VIT D (600MG/400IU) TAB PO SCH (10:37)
[2017-03-06] MEDS: TOLTERODINE TARTRATE 1 MG TAB PO SCH ×2 (10:37→21:58)
[2017-03-06] MEDS: PANTOPRAZOLE SODIUM 40 MG/10 ML VIAL IV SCH ×2 (10:37→22:08)
[2017-03-06] MEDS: predniSONE 20 MG TAB PO SCH (10:38)
[2017-03-06] MEDS: MULTIPLE VITAMIN TAB PO SCH (10:38)
[2017-03-06] MEDS: ASPirin 81 mg TAB PO SCH (10:38)
[2017-03-06] MEDS: CLOPIDOGREL BISULFATE 75 MG TAB PO SCH (10:38)
[2017-03-06 13:00] VITALS: BP 115/51
[2017-03-06 13:16] LABS: CONDITION Y; Hematocrit 28.5 % (36.0-46.0); Hemoglobin 9.8 g/dL (12.2-16.2); Mean Corpuscular Hemoglobin 31.7 pg (28.0-32.0); Mean Corpuscular Hgb Conc. 34.4 g/dL (32.0-36.0); Mean Corpuscular Volume 92.3 fL (80.0-100.0); Mean Platelet Volume 8.2 fL (7.4-10.4); Platelet Count (auto) 128 10^3/uL (140-450); Red Cell Distribution Width 14.2 % (11.6-16.0); SUSPECT SEE PRINTOUT; White Blood Cell 22.3 10^3/uL (4.4-10.8)
[2017-03-06 13:18] LABS: Metamyelocytes % 0; Myelocytes % 0; Promyelocytes % 0; Reactive Lymphocytes 0
[2017-03-06 13:34] LABS: INR 0.98 (0.9-1.15); Prothrombin Time 10.7 sec (9.37-12.3)
[2017-03-06 13:39] LABS: Albumin 1.9 g/dL (3.4-5.0); BUN/Creatinine Ratio 32.1; Bilirubin, Total 0.6 mg/dL (0.2-1.0); Calcium 7.5 mg/dL (8.5-10.1); Magnesium 2.3 mg/dL (1.6-2.6); Potassium 4.2 mmol/L (3.5-5.1); Total Protein 4.4 g/dL (6.4-8.2)
[2017-03-06 14:08] LABS: Ovalocytes FEW; Platelet Estimate Decreased; Stomatocytes Few
[2017-03-06 14:09] LABS: Burr Cells FEW
[2017-03-06 17:00] VITALS: BP 116/59
[2017-03-06] MEDS: MICAFUNGIN SODIUM 100 MG in SODIUM CHL 0.9% 100 ML IV SCH (18:08)
[2017-03-06 19:08] LABS: Hematocrit 27.9 % (36.0-46.0); Hemoglobin 9.4 g/dL (12.2-16.2)
[2017-03-06] MEDS: ONDANSETRON HCL 4 MG/2 ML VIAL IV PRN (19:59)
[2017-03-06 22:00] VITALS: BP 110/53
[2017-03-07] MEDS: HYDROcodone-ACET 5/325MG TAB PO PRN ×4 (00:29→23:01)
[2017-03-07 01:07] LABS: Hematocrit 25.1 % (36.0-46.0); Hemoglobin 8.4 g/dL (12.2-16.2)
[2017-03-07 05:00] VITALS: BP 107/42
[2017-03-07 05:57] LABS: Basophils # (auto) 0 uL; CONDITION Y; Eosinophils # (auto) 0.3 uL; Eosinophils % (auto) 1.6 % (0.0-7.0); Hematocrit 26.3 % (36.0-46.0); Hemoglobin 8.7 g/dL (12.2-16.2); Lymphocytes # (auto) 1.1 uL; Mean Corpuscular Hemoglobin 31.5 pg (28.0-32.0); Mean Corpuscular Hgb Conc. 33.2 g/dL (32.0-36.0); Mean Corpuscular Volume 94.8 fL (80.0-100.0); Mean Platelet Volume 8.4 fL (7.4-10.4); Monocytes # (auto) 1.4 uL; Monocytes % (auto) 8.1 % (0.0-12.0); Neutrophils # (auto) 14.9 uL; Neutrophils % (auto) 84.3 % (37.0-80.0); Platelet Count (auto) 126 10^3/uL (140-450); Red Cell Distribution Width 14.6 % (11.6-16.0); White Blood Cell 17.7 10^3/uL (4.4-10.8)
[2017-03-07 06:21] LABS: BUN/Creatinine Ratio 25.8; Calcium 7.7 mg/dL (8.5-10.1); Potassium 4.1 mmol/L (3.5-5.1)
[2017-03-07] MEDS: IPRATROPIUM BROM 0.5 MG/2.5ML INH SOL NEB SCH ×3 (06:39→18:06)
[2017-03-07 09:00] VITALS: BP 109/43
[2017-03-07] MEDS: PRO-STAT 64 30ML PO SCH ×2 (10:00→22:47)
[2017-03-07] MEDS: ASPirin 81 mg TAB PO SCH (11:13)
[2017-03-07] MEDS: CALCIUM W/VIT D (600MG/400IU) TAB PO SCH (11:13)
[2017-03-07] MEDS: CLOPIDOGREL BISULFATE 75 MG TAB PO SCH (11:14)
[2017-03-07] MEDS: predniSONE 20 MG TAB PO SCH (11:14)
[2017-03-07] MEDS: MULTIPLE VITAMIN TAB PO SCH (11:14)
[2017-03-07] MEDS: TOLTERODINE TARTRATE 1 MG TAB PO SCH ×2 (11:14→22:47)
[2017-03-07 12:06] LABS: Hemoglobin 9.2 g/dL (12.2-16.2)
[2017-03-07 13:00] VITALS: BP 117/44
[2017-03-07] MEDS: PANTOPRAZOLE SODIUM 40 MG/10 ML VIAL IV SCH ×2 (14:49→22:47)
[2017-03-07 17:38] VITALS: BP 112/47
[2017-03-07] MEDS: ONDANSETRON HCL 4 MG/2 ML VIAL IV PRN (17:45)
[2017-03-07] MEDS: MICAFUNGIN SODIUM 100 MG in SODIUM CHL 0.9% 100 ML IV SCH (17:45)
[2017-03-07 17:46] LABS: Hematocrit 26.1 % (36.0-46.0); Hemoglobin 8.8 g/dL (12.2-16.2)
[2017-03-07 21:53] VITALS: BP 144/73
[2017-03-08] VITALS (8 sets, daily range): BP systolic 104–144; BP diastolic 49–73
[2017-03-08] MEDS: IPRATROPIUM BROM 0.5 MG/2.5ML INH SOL NEB SCH ×4 (00:12→19:10)
[2017-03-08 06:56] LABS: CONDITION Y; DEFINITIVE SEE PRINTOUT; Hematocrit 25.3 % (36.0-46.0); Hemoglobin 8.4 g/dL (12.2-16.2); Mean Corpuscular Hemoglobin 31.3 pg (28.0-32.0); Mean Corpuscular Hgb Conc. 33.3 g/dL (32.0-36.0); Mean Corpuscular Volume 94.1 fL (80.0-100.0); Mean Platelet Volume 8.4 fL (7.4-10.4); Platelet Count (auto) 147 10^3/uL (140-450); Red Cell Distribution Width 14.8 % (11.6-16.0); White Blood Cell 17.3 10^3/uL (4.4-10.8)
[2017-03-08 07:06] LABS: Metamyelocytes % 0; Myelocytes % 0; Promyelocytes % 0; Reactive Lymphocytes 0
[2017-03-08 07:27] LABS: BUN/Creatinine Ratio 20.2; Calcium 7.9 mg/dL (8.5-10.1); Potassium 4.1 mmol/L (3.5-5.1)
[2017-03-08 09:34] LABS: Platelet Estimate Adequate
[2017-03-08 09:35] LABS: Ovalocytes FEW
[2017-03-08] MEDS: MULTIPLE VITAMIN TAB PO SCH (11:23)
[2017-03-08] MEDS: CALCIUM W/VIT D (600MG/400IU) TAB PO SCH (11:23)
[2017-03-08] MEDS: predniSONE 20 MG TAB PO SCH (11:23)
[2017-03-08] MEDS: PANTOPRAZOLE SODIUM 40 MG/10 ML VIAL IV SCH (11:23)
[2017-03-08] MEDS: CLOPIDOGREL BISULFATE 75 MG TAB PO SCH (11:23)
[2017-03-08] MEDS: ASPirin 81 mg TAB PO SCH (11:24)
[2017-03-08] MEDS: TOLTERODINE TARTRATE 1 MG TAB PO SCH ×2 (11:24→22:42)
[2017-03-08] MEDS: PRO-STAT 64 30ML PO SCH ×2 (11:56→22:00)
[2017-03-08] MEDS ORDERED: CLOP75TA28 PO (12:47)
[2017-03-08] MEDS ORDERED: ASPI81CH43 PO (12:47)
[2017-03-08] MEDS ORDERED: FLUC100T34 PO (12:47)
[2017-03-08] MEDS ORDERED: FLUCONAZOLE 200MG/100ML 100 ML IV SCH (13:00)
[2017-03-08] MEDS: HYDROcodone-ACET 5/325MG TAB PO PRN (14:17)
[2017-03-08] MEDS ORDERED: BISACODYL 10 MG RECT SUPP PR ONE (16:15)
[2017-03-08] MEDS: ONDANSETRON HCL 4 MG/2 ML VIAL IV PRN ×2 (18:36→22:42)
[2017-03-08] MEDS ORDERED: PANT40TA2 PO (19:13)
[2017-03-08] MEDS ORDERED: PANTOPRAZOLE 40 MG TAB PO SCH (22:00)
[2017-03-09] MEDS ORDERED: FLUCONAZOLE 100 MG TAB PO SCH (10:00)
== END 2017-03-08 23:33 | DRG 853 ==
LOC: EDBD 16:55 → ER 16:58 → TELE 16:59 → ICU WEST 02-25 17:25 → TELE-EAST 02-26 16:14 → EAST 03-08 02:13
PROVIDERS: ADMIT Internal Medicine; ATTEND Nurse Practitioner Acute Care
PROC: 027034Z Dilation of Coronary Artery, One Artery with Drug-eluting Intraluminal Device, Percutaneous Approach (ICD-10-PCS; principal; 2017-02-23)
PROC: 4A023N7 Measurement of Cardiac Sampling and Pressure, Left Heart, Percutaneous Approach (ICD-10-PCS; 2017-02-23)
PROC: B2111ZZ Fluoroscopy of Multiple Coronary Arteries using Low Osmolar Contrast (ICD-10-PCS; 2017-02-23)
PROC: 30233N1 Transfusion of Nonautologous Red Blood Cells into Peripheral Vein, Percutaneous Approach (ICD-10-PCS; 2017-02-26)
PROC: 0DJ08ZZ Inspection of Upper Intestinal Tract, Via Natural or Artificial Opening Endoscopic (ICD-10-PCS; 2017-03-05)
DX: A41.9 Sepsis, unspecified organism (principal); I21.4 Non-ST elevation (NSTEMI) myocardial infarction; E43 Unspecified severe protein-calorie malnutrition; N17.0 Acute kidney failure with tubular necrosis; J96.01 Acute respiratory failure with hypoxia; R57.0 Cardiogenic shock; J18.9 Pneumonia, unspecified organism; I50.43 Acute on chronic combined systolic (congestive) and diastolic (congestive) heart failure; J44.1 Chronic obstructive pulmonary disease with (acute) exacerbation; I13.0 Hypertensive heart and chronic kidney disease with heart failure and stage 1 through stage 4 chronic kidney disease, or unspecified chronic kidney disease; B37.49 Other urogenital candidiasis; J98.11 Atelectasis; D62 Acute posthemorrhagic anemia; I25.810 Atherosclerosis of coronary artery bypass graft(s) without angina pectoris; J44.0 Chronic obstructive pulmonary disease with (acute) lower respiratory infection; K92.2 Gastrointestinal hemorrhage, unspecified; Z66 Do not resuscitate; L89.311 Pressure ulcer of right buttock, stage 1; L89.151 Pressure ulcer of sacral region, stage 1; K21.9 Gastro-esophageal reflux disease without esophagitis; T38.0X5A Adverse effect of glucocorticoids and synthetic analogues, initial encounter; N18.3 Chronic kidney disease, stage 3 (moderate); E78.5 Hyperlipidemia, unspecified; I25.2 Old myocardial infarction; Z95.5 Presence of coronary angioplasty implant and graft; Z68.31 Body mass index [BMI] 31.0-31.9, adult
CPT/HCPCS: 36415; 36600; 51702; 71010; 74176; 76700; 80048; 80053; 81001; 82270; 82805; 83605; 83735; 83880; 84443; 84484; 85007; 85014; 85018; 85025; 85027; 85379; 85610; 85730; 86850; 86900; 86901; 86920; 87040; 87045; 87081; 87086; 87493; 87899; 93005; 93306; 94640; 96372; 96374; 96375; 97110; 97163; 97530; 99152; C1874; C1887; C9113; J0461; J0696; J1265; J1450; J2185; J2248; J2250; J2405; J2704